=== PATIENT | female | born 1980 | race Caucasian/White ===

== ENCOUNTER 2017-07-09 20:31 | Emergency (ER) | payer BC ==
[~2017-07-09] VITALS: Ht 162.6 cm; Wt 61.3 kg
[~2017-07-09 20:31] MED LIST: MTR600X PO; PRENTAB26 PO
[2017-07-09 20:37] VITALS: TEMP 37.1; Ht 162.6 cm; Wt 61.3 kg
[2017-07-09] MEDS ORDERED: MOME6000 NAE (21:23)
[2017-07-09] MEDS ORDERED: MULT-506 PO (21:23)
--- NOTE | 2017-07-09 23:08 | DIAGNOSTIC IMAGING REPORT ---
CHEST 2 VIEWS ROUTINE HISTORY: Foreign body sensation within the esophagus. Assess for food bolus. eval for FB COMPARISON: None. FINDINGS: The lungs are clear. Cardiac silhouette is normal in size. No pleural effusions. No pneumothorax. No radiopaque foreign bodies within the chest. No pneumomediastinum. An additional AP image of the chest was performed following swallowing of barium. The esophagus is normal in course and caliber. No filling defects identified within the esophagus. IMPRESSION: No radiopaque foreign bodies within the chest. No filling defects identified within the esophagus following barium ingestion. Electronically signed by: Octavio Aly M.D. 07/09/2017 11:06 PM Dictated Date/Time: 07/09/2017 11:03 PM
[2017-07-09 23:37] VITALS: BP 114/73; PULSE 66; O2SAT 98
--- NOTE | 2017-07-10 01:36 | EMERGENCY ROOM VISIT NOTE ---
History Report prepared by Anne: Theodora Arreola Under the Supervision of: Dr. Italo Hayden M.D. First contact with patient: 21:33 Chief Complaint: FOOD BOLUS Stated Complaint: CHOKED ON SOMETHING IN FOOD, SHARP FEELING Nursing Triage Summary: Pt reports she was eating a dumpling when she choked over it. She then felt like something was in the back of her throat. Pt unsure if something was sharp and scratched back of throat. Pt is able to drink and retain. History of Present Illness The patient is a 36 year old female who presents to the Emergency Room with complaints of persistent food bolus starting at 191 today. The patient had taken a small bite out of a dumpling. She swallowed and felt something sharp stick to the back of her throat causing her to start coughing and salivating. She went to the bathroom with a flashlight to see if she could see something, but was not able to visualize anything. She still feels that the object is stuck in her esophagus the object seems to be traveling down into her chest. She is swallowing her saliva and able to eat and drink. She tried eating some bread, but the foreign body sensation was not relieved. She denies any SOB, nausea, abdominal pain, fever, chest pain, or swelling in the legs. She does not taste any blood. She denies any chance of as she has an IUD. She denies any history of medical problems. Source of History: patient Onset: 1916 today Position: throat Quality: other (food bolus) Timing: other (persistent) Associated Symptoms: + cough, No fevers, No chest pain, No SOB, No nausea, No abdominal pain Note: Pt denies swelling in the legs. Review of Systems See HPI for pertinent positives & negatives. A total of 10 systems reviewed and were otherwise negative. Past Medical & Surgical Medical Problems: (1) No chronic problems Family History No pertinent family history stated. Social History Smoking Status: Never Smoker Marital Status: Housing Status: lives with family Current/Historical Medications Scheduled Mometasone Furoate (Nasal) (Mometasone Furoate), 2 SPRAYS GUANACO DAILY Multivitamin (Multivitamin), 1 TAB PO DAILY Allergies Coded Allergies: Latex1 -Allergic Contact Dermititis (Verified Allergy, Mild, RASH, 04/19/14 ) Physical Exam Vital Signs Date Time Temp Pulse Resp B/P (MAP) Pulse Ox O2 Delivery O2 Flow Rate FiO2 07/09/17 23:37 66 18 114/73 98 07/09/17 22:57 68 18 110/76 99 07/09/17 20:43 99 Room Air 07/09/17 20:37 37.1 95 16 132/73 99 Room Air Physical Exam Constitutional: Vital signs reviewed. Eyes: Pupils are equal round reactive to light. Conjunctiva are noninjected. ENT: Pharynx is clear without erythema or exudate. Mucous membranes are moist. Neck supple without meningeal signs. Respiratory: Clear to auscultation bilaterally. Breath sounds are equal bilaterally. No wheezing or stridor. Cardiovascular: Regular rate and rhythm. No rubs or gallops. GI: Soft, nondistended and nontender. Bowel sounds are present. Musculoskeletal: No peripheral edema. No lower extremity tenderness. Integumentary: No cyanosis. Neurological: The patient is awake and alert. No focal deficits. Psychiatric: Normal affect. Medical Decision & Procedures ER Provider Diagnostic Interpretation: X-ray results as stated below per interpretation by me and the radiologist: CHEST 2 VIEWS ROUTINE HISTORY: Foreign body sensation within the esophagus. Assess for food bolus. eval for FB COMPARISON: None. FINDINGS: The lungs are clear. Cardiac silhouette is normal in size. No pleural effusions. No pneumothorax. No radiopaque foreign bodies within the chest. No pneumomediastinum. An additional AP image of the chest was performed following swallowing of barium. The esophagus is normal in course and caliber. No filling defects identified within the esophagus. IMPRESSION: No radiopaque foreign bodies within the chest. No filling defects identified within the esophagus following barium ingestion. Electronically signed by: Octavio Aly M.D. 07/09/2017 11:06 PM Dictated Date/Time: 07/09/2017 11:03 PM ED Course 2135: The patient was evaluated in room B4B. A complete history and physical exam was performed. 9: I reevaluated the patient. She is still a little uncomfortable, otherwise has no complaints. I discussed the X-ray results with her. 0: I reevaluated the patient. She still has some irritation to the throat, but has no significant discomfort to her chest. I discussed the risks and benefits of CT to evaluate for foreign body. She would prefer to wait and follow up with her PCP tomorrow. She verbalized agreement of the treatment plan. She was discharged home. Medical Decision This is a 36-year-old female who presents with a foreign body sensation in her esophagus. Differential diagnosis includes foreign body, esophageal abrasion, esophagitis, perforation. I did perform a limited focused review of portions of the patient's old chart on the electronic medical record. The patient has had no recent pertinent visits to this hospital. I did evaluate the patient as noted above. The patient is very well-appearing on examination. She does have a foreign body sensation that started in her throat and has traveled down into her upper chest. She is able to drink and eat since the incident occurred. I did order and personally review the patient 's chest x-ray within without barium as described above. No foreign body was noted. I did reevaluate the patient. She still states she has a mild sensation in her upper chest as if there something there. I did discuss risks and benefits of obtaining a CT scan to evaluate for foreign body. She understands that a missed foreign body can lead to esophageal perforation and severe infection. After discussion she decided that she would rather wait and follow up with her doctor tomorrow. She was given instructions to return immediately for worse symptoms or any new symptoms. She was discharged in good condition. Medication Reconcilliation Current Medication List: was personally reviewed by me Blood Pressure Screening Patient's blood pressure: Elevated blood pressure Blood pressure disposition: Elevated BP felt to be situational Impression Primary Impression: Swallowed foreign body Scribe Attestation The scribe's documentation has been prepared under my direct and personally reviewed by me in its entirety. I confirm that the note above accurately reflects all work, treatment, procedures, and medical decision making performed by me. Departure Information Dispostion Home / Self-Care Referrals Tiffanie Krishnan D.O. Forms HOME CARE DOCUMENTATION FORM, IMPORTANT VISIT INFORMATION, WORK / SCHOOL INSTRUCTIONS Patient Instructions ED Foreign Body Swallowed Adult, My [facility] Additional Instructions You have been examined and treated today on an emergency basis only. This is not a substitute for, or an effort to provide, complete comprehensive medical care. It is impossible to recognize and treat all injuries or illnesses in a single emergency department visit. It is therefore important that you follow up closely with your physician tomorrow. Call as soon as possible for an appointment. Return for worsening symptoms or if you develop fever, vomiting, difficulty breathing, chest pain or any other concerning symptoms. Problem Qualifiers Primary Impression: Swallowed foreign body Encounter type: initial encounter Qualified Codes: T18.9XXA - Foreign body of alimentary tract, part unspecified, initial encounter
== END 2017-07-09 23:38 | disposition home or self-care (01) ==
LOC: C.EDB 20:33
DX: T18.9XXA Foreign body of alimentary tract, part unspecified, initial encounter (principal); X58.XXXA Exposure to other specified factors, initial encounter; Z97.5 Presence of (intrauterine) contraceptive device